=== PATIENT | male | born 1975 | race African-American/Black ===

== ENCOUNTER 2018-04-27 07:46 | Emergency (ER) | payer SELFPAY ==
[~2018-04-27] VITALS: Ht 185.4 cm; Wt 124.7 kg
[2018-04-27] MEDS ORDERED: NKM (07:58)
[2018-04-27 07:59] VITALS: BP 141/103
--- NOTE | 2018-04-27 08:09 | Emergency Room Report ---
History of Present Illness General Chief Complaint: General Complaint Source: Patient Present Illness HPI Mr. Rayo presents with swollen uvula. Mild congestion. mild sore throat. no dyspnea. Allergies: Coded Allergies: No Known Allergies (Unverified , 04/27/18) Patient History Reviewed Nursing Documentation: PMH: Agreed; PSxH: Agreed Nursing Documentation-[facility] Past Medical History: No Stated History Review of Systems Constitutional: Denies: fever, malaise Respiratory: Denies: cough Physical Exam Vital Signs Date Time Temp Pulse Resp B/P (MAP) Pulse Ox O2 Delivery O2 Flow Rate FiO2 04/27/18 07:53 97.8 88 16 141/103 99 Room Air 97.9 Sp02 EP Interpretation: reviewed, normal General Appearance: no apparent distress, alert, GCS 15, non-toxic Head: normocephalic, atraumatic Eyes: bilateral eye normal inspection ENT: hearing grossly normal, no angioedema, normal voice, moist mucus membranes , other - erythematous tonsils normal size no exudate Neck: full range of motion, supple/symm/no masses Respiratory: chest non-tender, lungs clear, normal breath sounds, speaking full sentences Cardiovascular #1: regular rate, rhythm, no edema Gastrointestinal: normal bowel sounds, non tender, soft, non-distended, no guarding, no rebound Musculoskeletal: back normal, gait/station normal, normal range of motion, non- tender, calf tenderness Neurologic: alert, oriented x3, responsive, motor strength/tone normal, sensory intact, speech normal Psychiatric: judgement/insight normal, memory normal, mood/affect normal, no suicidal/homicidal ideation Skin: normal color, no rash, warm/dry, well hydrated Lymphatic: no adenopathy Medical Decision Making Diagnostic Impression: Primary Impression: Acute pharyngitis ER Course Mr. Rayo presents with acute pharyngitis, viral vs allergic. No exudates or fever to indicate bacteria infection. Patient reports very enlarged uvula which has resolved. given IM decadron and return precautions. dc'd home Last Vital Signs Date Time Temp Pulse Resp B/P (MAP) Pulse Ox O2 Delivery O2 Flow Rate FiO2 04/27/18 07:59 97.9 88 16 141/103 99 Room Air 97.9 Disposition: HOME, SELF-CARE Condition: Stable Diandra Fajardo MD Apr 27, 2018 08:09
[2018-04-27] MEDS ORDERED: Dexamethasone 20mg/5ml IM ONE (08:15)
== END 2018-04-27 08:22 | disposition home or self-care (01) ==
LOC: EMR 08:15
DX: J02.9 Acute pharyngitis, unspecified (principal)
CPT/HCPCS: 96372; 99283; J1100

== ENCOUNTER 2018-09-21 22:49 | Emergency (ER) | payer SELFPAY ==
[~2018-09-21] VITALS: Ht 185.4 cm; Wt 117.9 kg
[~2018-09-21 22:49] MED LIST: NKM
[2018-09-21] MEDS ORDERED: NKM (22:59)
[2018-09-21 23:05] VITALS: BP 151/92
--- NOTE | 2018-09-21 23:05 | NUR ---
ED Nurse Note: Pt arrived ED from home, c/o blood in semen for one week and testicle enlarged recently. Pt is A/O X4. Vital signs stable . waitng for orders.
--- NOTE | 2018-09-21 23:11 | NUR ---
ED Nurse Note: urine sample collected and sent to Lab.
--- NOTE | 2018-09-21 23:11 | NUR ---
X-ray notified to call [employer].
[2018-09-21 23:17] LABS: APPEARANCE,URINE CLEAR; BILIRUBIN, URINE NEGATIVE (NEGATIVE); COLOR,URINE PALE YELLOW; GLUCOSE, URINE (UA) NEGATIVE (NEGATIVE); KETONES,URINE NEGATIVE (NEGATIVE); LEUKOCYTE ESTERASE ,URINE 2+ (NEGATIVE); NITRITE,URINE NEGATIVE (NEGATIVE); PH,URINE 5 (4.5-8.0); PROTEIN,URINE 1+ (NEGATIVE); UROBILINOGEN,URINE 1 MG/DL (0.0-1.0)
--- NOTE | 2018-09-21 23:44 | NUR ---
ED Nurse Note: Pt was sent for U/S.
--- NOTE | 2018-09-22 00:30 | NUR ---
ED Nurse Note: Pt returned from u/s.
[2018-09-22] MEDS ORDERED: cefTRIAXone 1 GM in NS 55 ML IVPB ONE (01:15)
--- NOTE | 2018-09-22 01:23 | NUR ---
ED Nurse Note: Meds given as ordered.
[2018-09-22] MEDS ORDERED: IBUPROFEN600 MG ORAL (01:42)
[2018-09-22] MEDS ORDERED: CIPROFLOXACIN500 M2 ORAL (01:42)
[2018-09-22 01:48] VITALS: BP 145/90
--- NOTE | 2018-09-22 01:48 | NUR ---
ER DISCHARGE NOTE: Patient is cleared to be discharged per Dr. Davis, pt is aox4, on room air, with stable vital signs. pt was given dc and prescription instructions, pt was able to verbalize understanding, pt id band and iv site removed without complications. pt is able to ambulate with steady gait. pt took all belongings.
--- NOTE | 2018-09-22 03:33 | Emergency Room Report ---
History of Present Illness General Chief Complaint: Male Urogenital Problems Source: Patient Present Illness HPI 43-year-old male presents ED for evaluation. Patient complaining of scrotal pain times one week. States that he noticed swelling and pain to his right testicle states that he also noticed blood in his semen. Pain is dull, 5 out of 10, nonradiating. Denies fevers or chills. Denies any discharge. No other aggravating relieving factors. Denies any other associated symptoms Allergies: Coded Allergies: No Known Allergies (Unverified , 04/27/18) Patient History Past Medical History: none Past Surgical History: none Pertinent Family History: none Social History: Denies: smoking, alcohol use, drug use Immunizations: UTD Reviewed Nursing Documentation: PMH: Agreed; PSxH: Agreed Nursing Documentation-PM[facility] Past Medical History: No Stated History Review of Systems All Other Systems: negative except mentioned in HPI Physical Exam Vital Signs Date Time Temp Pulse Resp B/P (MAP) Pulse Ox O2 Delivery O2 Flow Rate FiO2 09/21/18 22:54 98.1 108 16 164/92 96 Room Air Sp02 EP Interpretation: reviewed, normal General Appearance: no apparent distress, alert, GCS 15, non-toxic Head: normocephalic Eyes: bilateral eye normal inspection, bilateral eye PERRL ENT: normal ENT inspection Neck: normal inspection Respiratory: normal inspection Cardiovascular #1: normal inspection Gastrointestinal: normal inspection Rectal: deferred Genitourinary: no CVA tenderness, deferred - scrotal tenderness/swelling on right Musculoskeletal: normal inspection Neurologic: alert, oriented x3, responsive, motor strength/tone normal, sensory intact, speech normal Psychiatric: normal inspection Skin: normal inspection Lymphatic: normal inspection Medical Decision Making Diagnostic Impression: Primary Impression: Orchitis and epididymitis ER Course Hospital Course 43-year-old male presents to ED with right testicular pain/swelling. Differential diagnoses include: hydrocele, varicocele, epididymitis, testicular torsion Clinical course Patient placed on stretcher. After initial history and physical I ordered UA and scrotal ultrasound. UA- some WBCs. no bacteria Ultrasound shows epididymitis, possible orchitis Discussed findings with urology Dr Aguirre. Patient is afebrile, nontoxic appearing. Agrees that patient can be safely discharged to home. Recommended IV Rocephin here and discharged with antibiotics. Patient given IV Rocephin here. Discussed findings with patient. We'll discharge with Cipro Will provide referrals. Safe for discharge with close outpatient follow-up Diagnosis - orchitis, epididymitis stable and discharged to home with prescription for Motrin, cipro. Followup with PMD/urology. Return to ED if symptoms recur or worsen Labs Test 09/21/18 23:05 Urine Color Pale yellow Urine Appearance Clear Urine pH 5 (4.5-8.0) Urine Specific [place] 1.025 (1.005-1.035) Urine Protein 1+ (NEGATIVE) Urine Glucose (UA) Negative (NEGATIVE) Urine Ketones Negative (NEGATIVE) Urine Blood 1+ (NEGATIVE) Urine Nitrite Negative (NEGATIVE) Urine Bilirubin Negative (NEGATIVE) Urine Urobilinogen 1 MG/DL (0.0-1.0) Urine Leukocyte Esterase 2+ (NEGATIVE) Urine RBC 0-2 /HPF (0 - 0) Urine WBC 10-15 /HPF (0 - 0) Urine Squamous Epithelial Cells None /LPF (NONE/OCC) Urine Bacteria None /HPF (NONE) CT/MRI/US Diagnostic Results CT/MRI/US Diagnostic Results : Imaging Test Ordered: scrotal US Impression FINDINGS: Right testicle: 2.8 x 1.6 x 2.8 cm Unremarkable. Focal area of hypoechoic echotexture measuring 3.2 x 7 mm. This uncertain etiology. This may represent a small testicular abscess. Normal blood flow to the right testes. Small right hydrocele a small varicocele cannot be excluded Left testicle: 3.1 x 1.7 x 2.6 cm Unremarkable. No mass. No torsion. Epididymides: Hyperemic enlarged epididymis on the right normal appearance of the epididymis on the left Scrotum: Scrotal thickening on the right Last Vital Signs Date Time Temp Pulse Resp B/P (MAP) Pulse Ox O2 Delivery O2 Flow Rate FiO2 09/22/18 01:48 98.1 75 16 145/90 96 Room Air Status: improved Disposition: HOME, SELF-CARE Condition: Stable Scripts Ibuprofen* (MOTRIN*) 600 Mg Tablet 600 MG ORAL Q8H PRN for For Pain, #30 TAB 0 Refills Prov: Waqar Davis MD 09/22/18 Ciprofloxacin Hcl* (CIPROFLOXACIN HCL*) 500 Mg Tablet 500 MG ORAL Q12H, #14 TAB 0 Refills Prov: Waqar Davis MD 09/22/18 Referrals: Paco Aguirre M.D. NOT CHOSEN IPA/,REFERRING (PCP) [facility] Patient Instructions: Orchitis Waqar Davis MD Sep 22, 2018 03:33
== END 2018-09-22 01:48 | disposition home or self-care (01) ==
LOC: EMR 23:30
DX: N45.2 Orchitis (principal); N45.1 Epididymitis
CPT/HCPCS: 76870; 81003; 87086; 96365; 99284; J0696